=== PATIENT | female | born 1955 | race Caucasian/White ===

== ENCOUNTER → 2022-01-24 | Outpatient (CLI) | payer MEDICARE ==
--- NOTE | 2022-01-26 07:39 | CT ---
EXAMINATION TYPE: CT sinus wo con DATE OF EXAM: 01/24/2022 COMPARISON: None HISTORY: Chronic sinusitis Unenhanced CT of the paranasal sinuses was performed in the axial and coronal planes. Bone and soft tissue settings are submitted. Postoperative changes of medial maxillary antrectomy and ethmoidectomy. No significant mucosal thicke milvia or air-fluid levels identified. The nasal septum is midline. No bony destructive changes are seen within the field of view. IMPRESSION: Postoperative changes without evidence for sinusitis at this time.
== END | disposition home or self-care (01) ==
LOC: RADCTMAIN 13:51 → EDBD 14:00
PROVIDERS: ATTEND Otolaryngology
DX: J32.9 Chronic sinusitis, unspecified (principal); H91.90 Unspecified hearing loss, unspecified ear; H93.19 Tinnitus, unspecified ear; H93.3X9 Disorders of unspecified acoustic nerve
CPT/HCPCS: 70486

== ENCOUNTER → 2022-06-13 | Outpatient (CLI) | payer MEDICARE ==
--- NOTE | 2022-06-13 18:47 | CT ---
EXAMINATION TYPE: CT iac wo con DATE OF EXAM: 06/13/2022 COMPARISON: None HISTORY: Tinnitus, hearing loss CT DLP: 206 mGycm Automated exposure control for dose reduction was used. Contrast: None Technique: Axial images 1 mm thick sections. Reconstructed images in coronal and sagittal plane. FINDINGS: Note is made of mucosal thickening within ethmoid air cells on the right sphenoid sinus. There is flu id through right mastoid air cells. No septal destruction is evident. Prior left mastoidectomy is raquel dent. Incus and malleus have normal orientation. The internal auditory canals are patent. No expansion or e rosion is evident. Semicircular canals and cochlea are normal. Some fluid is within the left middle e ar. External auditory canals are patent. Right attic appears normal. Left attic appears normal. IMPRESSION: 1. FLUID-FILLED LEFT MIDDLE EAR. CORRELATE FOR OTITIS MEDIA. 2. FLUID-FILLED RIGHT MASTOID AIR CELLS. CORRELATE FOR RIGHT MASTOIDITIS. 3. MUCOSAL THICKENING WITHIN ETHMOID AND SPHENOID SINUSES. CORRELATE FOR ACUTE SINUSITIS.
== END | disposition home or self-care (01) ==
LOC: RADCTMAIN 10:47
PROVIDERS: ATTEND Otolaryngology
DX: J34.89 Other specified disorders of nose and nasal sinuses (principal); H93.19 Tinnitus, unspecified ear; H91.90 Unspecified hearing loss, unspecified ear
CPT/HCPCS: 70480